=== PATIENT | male | born 1995 | race Caucasian/White ===

== ENCOUNTER 2019-01-19 22:47 | Emergency (ER) | payer SELFPAY ==
[~2019-01-19] VITALS: Wt 91.1 kg
[2019-01-19] MEDS ORDERED: predniSONE 20 MG TAB PO ONE (23:30)
[2019-01-19] MEDS ORDERED: DIPHENHYDRAMINE 50 MG INJ IM ONE (23:30)
[2019-01-20] MEDS ORDERED: PRED20TA PO (00:02)
[2019-01-20] MEDS ORDERED: CETI10CA PO (00:02)
--- NOTE | 2019-01-20 00:04 | ERD ---
ER Documentation Chief Complaint Chief Complaint RASH ON BODY, ARMS X'S 5 DAYS. C/O BURNING; ITCHING HPI 23-year-old male presents with an itchy rash on extremities and trunk for the last 5 days. He has a known allergy to shrimp but did not use any treatment. Denies any fevers, cough, sore throat, difficulty breathing. Denies any new foods, medications or known allergens. ROS All systems reviewed and are negative except as per history of present illness. Medications Home Meds Active Scripts Cetirizine Hcl* (Zyrtec*) 10 Mg Capsule, 10 MG PO DAILY, #15 TAB.CHEW Prov:ZACHARY RAMESH MD 01/20/19 Prednisone* (Prednisone*) 20 Mg Tab, 40 MG PO DAILY for 4 Days, TAB Start January 20, 2019 Prov:ZACHARY RAMESH MD 01/20/19 Allergies Allergies: Coded Allergies: shrimp (Verified Allergy, Unknown, 01/19/19) PMhx/Soc Medical and Surgical Hx: pt denies Medical Hx, pt denies Surgical Hx History of Surgery: No Anesthesia Reaction: No Hx Neurological Disorder: No Hx Respiratory Disorders: No Hx Cardiac Disorders: No Hx Psychiatric Problems: No Hx Miscellaneous Medical Probl: No Hx Alcohol Use: Yes (WEEKENDS) Hx Substance Use: No Hx Tobacco Use: No Smoking Status: Never smoker FmHx Family History: No diabetes, No coronary disease, No other Physical Exam Vitals Vital Signs Date Temp Pulse Resp B/P (MAP) Pulse Ox O2 O2 Flow FiO2 Time Delivery Rate 01/19/19 97.8 104 18 156/93 99 22:52 (114) Physical Exam Const: No acute distress Head: Atraumatic Eyes: Normal Conjunctiva ENT: Normal External Ears, Nose and Mouth. Neck: Full range of motion. No meningismus. Resp: Clear to auscultation bilaterally Cardio: Regular rate and rhythm, no murmurs Abd: Soft, non tender, non distended. Normal bowel sounds Skin: No petechiae or purpura. Blanching macular papular rash on the trunk and extremities. No induration, streaking, vesicles. Back: No midline or flank tenderness Ext: No cyanosis, or edema Neur: Awake and alert Psych: Normal Mood and Affect Results 24 hrs Current Medications Medications Dose Sig/Jet Start Time Status Last (Trade) Ordered Route PRN Stop Time Admin Dose Reason Admin 50 mg ONCE ONCE 01/19/19 DC 01/19/19 Diphenhydrami IM 23:30 01/19/19 23:39 ne HCl 23:32 (Benadryl) Prednisone 60 mg ONCE ONCE 01/19/19 DC 01/19/19 (Prednisone) PO 23:30 01/19/19 23:39 23:32 Procedures/MDM Patient presents with nonspecific itchy blanching dermatitis of uncertain etiology. Rash has an eczema type appearance. There is no signs of purpura, vesicles, life-threatening rashes. There is no evidence of anaphylaxis or cellulitis. He was given Benadryl 25 mg IM, prednisone 60 mg by mouth we will treat with prednisone, Zyrtec, Benadryl, primary care follow-up and return precautions. He should otherwise observe environment for potential allergens,, return to the ER for new or worsening symptoms with primary care doctor. The patient was stable with no new complaints during the ER course. Clinically, there is no current evidence to suggest meningitis, sepsis, acute abdomen, pneumonia, stroke, acute coronary syndrome, pulmonary embolism, aortic dissection or any other emergent condition appearing to require further evaluation or hospitalization. Patient counseled regarding my diagnostic impression and care plan. Prior to discharge all questions answered. Pt agrees with treatment plan and understands strict return precautions. Pt is instructed to follow up with primary care provider within 24-48 hours. Precautionary instructions provided including instructions to return to the ER if not improving or for any worsening or changing symptoms or concerns. Departure Diagnosis: Primary Impression: Rash Condition: Stable Patient Instructions: Dermatitis, Non-Specific Additional Instructions: Okay to take Benadryl as well every 4-6 hours for rash. Likely unspecified allergic reaction or viral rash.. ZACHARY RAMESH MD Jan 20, 2019 00:04
[2019-01-20 00:50] VITALS: BP 117/73; PULSE 79; RESP 18
== END 2019-01-20 01:01 | disposition home or self-care (01) ==
LOC: FTE 22:47
DX: R21 Rash and other nonspecific skin eruption (principal)
CPT/HCPCS: 96372; 99284; J1200; J7512